=== PATIENT | male | born 1995 | race American Indian/Alaskan Native ===

== ENCOUNTER 2018-11-05 11:57 | Emergency (ER) | payer SELFPAY ==
[2018-11-05 12:06] VITALS: BP 115/55
--- NOTE | 2018-11-05 13:39 | Emergency Department Report ---
ED Extremity Problem HPI - General Chief complaint: Extremity Injury, Lower Stated complaint: LEFT KNEE PAIN X1WK Time Seen by Provider: 11/05/18 13:16 Source: patient Mode of arrival: Ambulatory Limitations: No Limitations - History of Present Illness Initial comments: Patient is a 22-year-old Austrian male who is complaining of left knee pain for the last 3 weeks. Patient is having difficulty walking and standing is interfering with his job. Patient states he had meniscal surgery approximately 20 years ago at [facility] for he no longer has a [employer] cart and cannot see the same orthopedic doctor. Patient states he has not had any slips and falls patient states pain is a 7 out of 10 in severity. - Related Data Previous Rx's Medication Instructions Recorded Last Taken Type Ibuprofen [Motrin] 800 mg PO Q8HR PRN #20 tablet 11/05/18 Unknown Rx Allergies Allergy/AdvReac Type Severity Reaction Status Date / Time soy Allergy Swelling Verified 11/05/18 12:04 ED Review of Systems ROS: Stated complaint: LEFT KNEE PAIN X1WK Other details as noted in HPI Comment: All other systems reviewed and negative ED Past Medical Hx - Past Medical History Previous Medical History?: No - Surgical History Past Surgical History?: Yes Additional Surgical History: left knee surgery. neck surgery- after neck fx - Social History Smoking Status: Current Every Day Smoker Substance Use Type: None - Medications Home Medications: Home Medications Medication Instructions Recorded Confirmed Last Taken Type Ibuprofen [Motrin] 800 mg PO Q8HR PRN #20 tablet 11/05/18 Unknown Rx ED Physical Exam - General Limitations: No Limitations General appearance: alert, in no apparent distress - Head Head exam: Present: atraumatic, normocephalic - Eye Eye exam: Present: normal appearance - ENT ENT exam: Present: mucous membranes moist - Neck Neck exam: Present: normal inspection - Respiratory Respiratory exam: Present: normal lung sounds bilaterally. Absent: respiratory distress - Cardiovascular Cardiovascular Exam: Present: regular rate, normal rhythm. Absent: systolic murmur, diastolic murmur, rubs, gallop - GI/Abdominal GI/Abdominal exam: Present: soft, normal bowel sounds - Rectal Rectal exam: Present: deferred - Extremities Exam Extremities exam: Present: normal inspection - Expanded Lower Extremity Exam Left Knee exam: Present: normal inspection, full ROM, tenderness, swelling (moderate effusion), effusion. Absent: laceration, ecchymosis, deformity, crepidus, erythema - Back Exam Back exam: Present: normal inspection - Neurological Exam Neurological exam: Present: alert, oriented X3 - Psychiatric Psychiatric exam: Present: normal affect, normal mood - Skin Skin exam: Present: warm, dry, intact, normal color. Absent: rash ED Course Vital Signs 11/05/18 12:04 Temperature 99.2 F Pulse Rate 53 L Respiratory 18 Rate Blood Pressure 115/55 O2 Sat by Pulse 98 Oximetry ED Medical Decision Making - Medical Decision Making Patient given information about rice therapy will be discharged home. Critical care attestation.: If time is entered above; I have spent that time in minutes in the direct care of this critically ill patient, excluding procedure time. ED Disposition Clinical Impression: Knee effusion, left Disposition: DC-01 TO HOME OR SELFCARE Is pt being admited?: No Does the pt Need Aspirin: No Condition: Stable Instructions: Knee Effusion (ED) Referrals: RORY MAYES MD [Staff Physician] - 3-5 Days Time of Disposition: 13:39
== END 2018-11-05 14:26 | disposition home or self-care (01) ==
LOC: ED 11:57
DX: M25.462 Effusion, left knee (principal); F17.200 Nicotine dependence, unspecified, uncomplicated
CPT/HCPCS: 99282

== ENCOUNTER 2019-04-24 22:22 | Emergency (ER) | payer SELFPAY ==
--- NOTE | 2019-04-24 22:30 | Event Note ---
ED Screening Note ED Screening Note: index finger pain This initial assessment/diagnostic orders/clinical plan/treatment(s) is/are subject to change based on patients health status, clinical progression and re- assessment by fellow clinical providers in the ED. Further treatment and workup at subsequent clinical providers discretion. Patient/guardian urged not to elope from the ED as their condition may be serious if not clinically assessed and managed. Initial orders include:
--- NOTE | 2019-04-24 23:31 | XRay Report ---
LEFT 4TH FINGER3 views HISTORY: Left index finger blunt trauma 10 days ago, and extending her pain COMPARISON: None. TECHNIQUE: 2 views of the left index finger and a PA view of the hand were obtained. FINDINGS: Bones: Small ossified fragment is seen projecting over the dorsal soft tissues of the index finger on ly on the lateral view, with possible donor site at the dorsal margin of the proximal phalanx base. S equela of an old thumb ulnar collateral ligament avulsion fracture is noted. Joint spaces: Maintained. Soft tissues: Mild index finger soft tissue swelling. Additional findings: None. IMPRESSION: 1. Possible index finger avulsion fracture fragment is seen only on the lateral view, with potential donor site at the dorsal margin of the proximal phalanx base. Correlation with examination for focal tenderness at this location is recommended. If clinically warranted, MRI of the head without contrast could be performed to evaluate for ligamentous/tendon injury. 2. Mild soft tissue swelling along the index finger. Signer Name: Mane Altman MD Signed: 04/24/2019 11:27 PM Workstation Name: [id number]
--- NOTE | 2019-04-25 00:37 | Emergency Department Report ---
ED Upper Extremity Inj HPI - General Chief Complaint: Extremity Injury, Upper Stated Complaint: LEFT INDEX FINGER INJURY Time Seen by Provider: 04/24/19 22:29 Source: patient Mode of arrival: Ambulatory Limitations: No Limitations - History of Present Illness Initial Comments: This is a 23-year-old -Chinese male who presents to emergency room with swelling and pain to left second finger. Patient's states his finger got stuck between 2 metal pipes while helping a friend carry them 2 weeks ago. He reports decreased ROM with increasing pain during movement. There is swelling and pain to proximal finger. MD Complaint: Injury to:: left, finger Onset/Timin -: days(s) Other Extremity Injury: Fingers: Right (second proximal finger) Other Injuries: none Handedness: right Place: outdoors Severity scale (0 -10): 5 Improves With: none Worsens With: movement of extremity Context: crush Associated Symptoms: denies other symptoms - Related Data Previous Rx's Medication Instructions Recorded Last Taken Type Ibuprofen [Motrin 800 MG tab] 800 mg PO Q8HR PRN #20 tablet 04/25/19 Unknown Rx Allergies Allergy/AdvReac Type Severity Reaction Status Date / Time soy Allergy Swelling Verified 11/05/18 12:04 ED Review of Systems ROS: Stated complaint: LEFT INDEX FINGER INJURY Other details as noted in HPI Constitutional: denies: chills, fever Respiratory: denies: cough, shortness of breath, wheezing Cardiovascular: denies: chest pain, palpitations Gastrointestinal: denies: abdominal pain, nausea, diarrhea Musculoskeletal: joint swelling (right PIP), arthralgia (right second proximal finger pain and swelling). denies: back pain Skin: denies: rash, lesions Neurological: denies: headache, weakness, paresthesias Psychiatric: denies: anxiety, depression ED Past Medical Hx - Past Medical History Previous Medical History?: No - Surgical History Past Surgical History?: Yes Additional Surgical History: left knee surgery. neck surgery- after neck fx - Social History Smoking Status: Never Smoker Substance Use Type: Marijuana - Medications Home Medications: Home Medications Medication Instructions Recorded Confirmed Last Taken Type Ibuprofen [Motrin 800 MG tab] 800 mg PO Q8HR PRN #20 tablet 04/25/19 Unknown Rx ED Physical Exam - General Limitations: No Limitations General appearance: alert, in no apparent distress - Respiratory Respiratory exam: Present: normal lung sounds bilaterally. Absent: respiratory distress - Cardiovascular Cardiovascular Exam: Present: regular rate, normal rhythm. Absent: systolic murmur, diastolic murmur, rubs, gallop - GI/Abdominal GI/Abdominal exam: Present: soft, normal bowel sounds - Expanded Upper Extremity Exam Right Shoulder Exam: Present: normal inspection, full ROM Upper Arm exam: Present: normal inspection, full ROM Elbow exam: Present: normal inspection, full ROM Forearm Wrist exam: Present: normal inspection, full ROM Hand Wrist exam: Present: tenderness (tenderness and swelling over second PIP), swelling. Absent: full ROM (Limited range of motion secondary pain), abrasion, laceration, ecchymosis, deformity, dislocation, erythema, amputation, nail avulsion, subungual hematoma Neuro motor exam: Present: wrist extension intact, thumb opposition intact, thumb IP flexion intact, thumb adduction intact, fingers 2-5 abduction intact Neurosensory exam: Present: radial nerve intact, ulnar nerve intact, median nerve intact Vascular: Present: normal capillary refill, radial pulse - Neurological Exam Neurological exam: Present: alert, oriented X3 - Psychiatric Psychiatric exam: Present: normal affect, normal mood - Skin Skin exam: Present: warm, dry, intact, normal color. Absent: rash ED Course Vital Signs 04/24/19 22:34 Temperature 97.3 F L Pulse Rate 88 Respiratory 18 Rate Blood Pressure 108/61 O2 Sat by Pulse 99 Oximetry ED Medical Decision Making - Radiology Data Radiology results: report reviewed LEFT 4TH FINGER3 views HISTORY: Left index finger blunt trauma 10 days ago, and extending her pain COMPARISON: None. TECHNIQUE: 2 views of the left index finger and a PA view of the hand were obtained. FINDINGS: Bones: Small ossified fragment is seen projecting over the dorsal soft tissues of the index finger only on the lateral view, with possible donor site at the dorsal margin of the proximal phalanx base. Sequela of an old thumb ulnar collateral ligament avulsion fracture is noted. Joint spaces: Maintained. Soft tissues: Mild index finger soft tissue swelling. Additional findings: None. IMPRESSION: 1. Possible index finger avulsion fracture fragment is seen only on the lateral view, with potential donor site at the dorsal margin of the proximal phalanx base. Correlation with examination for focal tenderness at this location is recommended. If clinically warranted, MRI of the head without contrast could be performed to evaluate for ligamentous/tendon injury. 2. Mild soft tissue swelling along the index finger. - Medical Decision Making Patient was examined by me. Vitals are normal and patient is in no acute distress. Obtained a x-ray of left second finger. X-rays dictated by radiologist. Possible index finger avulsion fracture fragment is seen only on the lateral view, with potential donor site at the dorsal margin of the proximal phalanx base. A splint to finger. Referral to orthopedic surgeon for continued care. Start ibuprofen for pain. Plan discussed with patient to discharge home and treat outpatient. He agrees with ER plan. Patient discharged home in stable condition. Follow up with PCP in 2-3 days. Critical care attestation.: If time is entered above; I have spent that time in minutes in the direct care of this critically ill patient, excluding procedure time. ED Disposition Clinical Impression: Finger fracture, left Qualifiers: Encounter type: initial encounter Finger: index finger Fracture type: closed Phalanx: proximal Fracture alignment: nondisplaced Qualified Code(s): S62.641A - Nondisplaced fracture of proximal phalanx of left index finger, initial encounter for closed fracture Finger pain Qualifiers: Laterality: left Qualified Code(s): M79.645 - Pain in left finger(s) Injury, finger Qualifiers: Encounter type: initial encounter Laterality: left Qualified Code(s): S69.92XA - Unspecified injury of left wrist, hand and finger(s), initial encounter Disposition: TO HOME OR SELFCARE Is pt being admited?: No Does the pt Need Aspirin: No Condition: Stable Instructions: Finger Fracture (ED) Additional Instructions: Follow-up with orthopedic surgeon from the referral list below. Take pain medication every 8 hours as needed for pain. [place] emergency room with worsening symptoms. Prescriptions: Ibuprofen [Motrin 800 MG tab] 800 mg PO Q8HR PRN #20 tablet PRN Reason: Pain Referrals: DESIREE TAVERAPRATIBHA MD [Primary Care Provider] - 3-5 Days [facility] [Outside] - 3-5 Days RORY MAYES MD [Staff Physician] - 3-5 Days [facility] [Provider Group] - 3-5 Days Forms: Work/School Release Form(ED), Accompanied Note Time of Disposition: 00:44
[2019-04-25 00:58] VITALS: BP 121/65
== END 2019-04-25 00:50 | disposition home or self-care (01) ==
LOC: ED 22:22
DX: S62.641A Nondisplaced fracture of proximal phalanx of left index finger, initial encounter for closed fracture (principal); F12.10 Cannabis abuse, uncomplicated; Z91.018 Allergy to other foods; W31.89XA Contact with other specified machinery, initial encounter; Y93.89 Activity, other specified; Y92.89 Other specified places as the place of occurrence of the external cause; Y99.8 Other external cause status

== ENCOUNTER 2019-05-02 20:53 | Emergency (ER) | payer SELFPAY ==
[2019-05-02 21:22] VITALS: BP 120/62
--- NOTE | 2019-05-02 21:51 | XRay Report ---
RIGHT ANKLE 3 VIEWS INDICATION / CLINICAL INFORMATION: Right ankle trauma skateboarding today with persistent pain. COMPARISON: None available. FINDINGS: Mild soft tissue swelling. There is a small bone density dorsal to the distal talus of unknown clinic al significance. This may represent an accessory ossicle. No other significant skeletal abnormality. Signer Name: Jigar Elaine MD FACR Signed: 05/02/2019 9:47 PM Workstation Name: [email or web address] [id number]
--- NOTE | 2019-05-02 22:39 | Emergency Department Report ---
ED Lower Extremity HPI - General Chief Complaint: Extremity Injury, Lower Stated Complaint: RIGHT ANKLE INJURY Time Seen by Provider: 05/02/19 21:30 Source: patient Mode of arrival: Ambulatory Limitations: No Limitations - History of Present Illness MD Complaint: ankle injury -: hour(s) Injury: Ankle: Right, Foot: Right Type of Injury: inversion Place: home (post accident falling down stairs) Severity: moderate Context: fall Associated Symptoms: swelling, able to partially bear weight (reports not able to bear a lot of weight, but is able to tiptoe a little bit) - Related Data Previous Rx's Medication Instructions Recorded Last Taken Type Ibuprofen [Motrin 800 MG tab] 800 mg PO Q8HR PRN #20 tablet 04/25/19 Unknown Rx Allergies Allergy/AdvReac Type Severity Reaction Status Date / Time soy Allergy Swelling Verified 11/05/18 12:04 ED Review of Systems ROS: Stated complaint: RIGHT ANKLE INJURY Other details as noted in HPI Comment: All other systems reviewed and negative ED Past Medical Hx - Past Medical History Previous Medical History?: No - Surgical History Past Surgical History?: Yes Additional Surgical History: left knee surgery. neck surgery- after neck fx - Social History Smoking Status: Never Smoker Substance Use Type: Marijuana - Medications Home Medications: Home Medications Medication Instructions Recorded Confirmed Last Taken Type Ibuprofen [Motrin 800 MG tab] 800 mg PO Q8HR PRN #20 tablet 04/25/19 Unknown Rx ED Physical Exam - General Limitations: No Limitations General appearance: alert, in no apparent distress - Head Head exam: Present: atraumatic, normocephalic - Eye Eye exam: Present: normal appearance - ENT ENT exam: Present: mucous membranes moist - Neck Neck exam: Present: normal inspection - Respiratory Respiratory exam: Present: normal lung sounds bilaterally. Absent: respiratory distress - Cardiovascular Cardiovascular Exam: Present: regular rate, normal rhythm. Absent: systolic murmur, diastolic murmur, rubs, gallop - GI/Abdominal GI/Abdominal exam: Present: soft, normal bowel sounds - Rectal Rectal exam: Present: deferred - Extremities Exam Extremities exam: Present: normal inspection, tenderness, normal capillary refill, joint swelling (my swelling to the right lateral malleolar region tenderness just above the lateral malleolus into the area of the right anterior talo fibular ligament. No tenderness to the proximal fibula. Joint is stable. Pulses 2+. Negative drawer test for the ankle) - Back Exam Back exam: Present: normal inspection - Neurological Exam Neurological exam: Present: alert, oriented X3 - Psychiatric Psychiatric exam: Present: normal affect, normal mood - Skin Skin exam: Present: warm, dry, intact, normal color. Absent: rash ED Course Vital Signs 05/02/19 21:18 Temperature 98 F Pulse Rate 54 L Respiratory 16 Rate Blood Pressure 120/62 O2 Sat by Pulse 100 Oximetry ED Lower Extremity MDM - Radiology Data Radiology results: report reviewed (no fracture noted) - Medical Decision Making 23-year-old -Turkmen male with a misstep on stairs resulting in an inversion injury, sprain to the ankle. X-ray does not show any fractures. Treated accordingly with sterile gel brace and crutches and advised Mylanta in flammatory disease and Rice therapy. Advised follow-up with orthopedic for definitive management and further evaluation of this ankle Critical care attestation.: If time is entered above; I have spent that time in minutes in the direct care of this critically ill patient, excluding procedure time. ED Disposition Clinical Impression: Ankle sprain Disposition: DC-01 TO HOME OR SELFCARE Is pt being admited?: No Does the pt Need Aspirin: No Condition: Stable Instructions: Ankle Sprain (ED), Ankle Stirrup Splint (ED), Ankle Exercises (GEN), RICE Therapy (ED), Crutch Instructions (ED) Referrals: PRATIBHA MOGNE MD [Primary Care Provider] - 3-5 Days
== END 2019-05-02 23:40 | disposition home or self-care (01) ==
LOC: ED 20:53
DX: S93.401A Sprain of unspecified ligament of right ankle, initial encounter (principal); F12.10 Cannabis abuse, uncomplicated; Z79.899 Other long term (current) drug therapy; Z98.890 Other specified postprocedural states; Z91.018 Allergy to other foods; W10.8XXA Fall (on) (from) other stairs and steps, initial encounter; Y93.89 Activity, other specified; Y92.89 Other specified places as the place of occurrence of the external cause; Y99.8 Other external cause status

== ENCOUNTER 2019-12-17 12:52 | Emergency (ER) | payer SELFPAY ==
[2019-12-17 14:24] VITALS: BP 117/78
--- NOTE | 2019-12-17 17:49 | Emergency Department Report ---
<DEVANTE COPPOLA - Last Filed: 12/17/19 18:51> ED Lower Extremity HPI - General Chief Complaint: Extremity Injury, Lower Stated Complaint: FOOT PAIN Time Seen by Provider: 12/17/19 17:41 - Related Data Previous Rx's Medication Instructions Recorded Last Taken Type Ibuprofen [Motrin 800 MG tab] 800 mg PO Q8HR PRN #20 tablet 04/25/19 Unknown Rx Ketorolac [Toradol] 10 mg PO Q6H PRN #14 tablet 12/17/19 Unknown Rx Allergies Allergy/AdvReac Type Severity Reaction Status Date / Time soy Allergy Swelling Verified 11/05/18 12:04 ED Past Medical Hx - Medications Home Medications: Home Medications Medication Instructions Recorded Confirmed Last Taken Type Ibuprofen [Motrin 800 MG tab] 800 mg PO Q8HR PRN #20 tablet 04/25/19 Unknown Rx Ketorolac [Toradol] 10 mg PO Q6H PRN #14 tablet 12/17/19 Unknown Rx ED Lower Extremity MDM - Radiology Data Radiology results: report reviewed Patient Name: CATHLEEN FELIPE Gender: Male Date of : 1995 Referring Provider: SETH BERUMEN Organization: [facility] Accession Number: [id number] Requested Date: December 17, 2019 17:41 Report Status: Final Requested Procedure: 1 Procedure Description: XR toe(s) 2+V RT Modality: XR Findings Reporting MD: Jigar Elaine Dictation Time: December 17, 2019 17:26 Regulatory Specialist: Not available Bilingual Interpreter Date: RIGHT GREAT TOE 3 VIEWS INDICATION / CLINICAL INFORMATION: HALLUX PAIN CRUSH INJURY. COMPARISON: None available. FINDINGS: There is a bone density adjacent to the lateral aspect of the head of the great toe that could be related to the lateral sesamoid. Moderate degenerative changes seen in the first metatarsophalangeal joint. No other significant skeletal abnormality. Signer Name: Jigar Elaine MD FACR Signed: 12/17/2019 5:26 PM Workstation Name: [id number] ED Disposition Clinical Impression: Contusion, toe Disposition: DC-01 TO HOME OR SELFCARE Condition: Stable Instructions: Contusion in Adults (ED), RICE Therapy (ED), Ice Pack Application (ED) Prescriptions: Ketorolac [Toradol] 10 mg PO Q6H PRN #14 tablet PRN Reason: Pain Referrals: PRIMARY CARE, [Primary Care Provider] - 3-5 Days TOMMY LAWS [[employer]] - 3-5 Days ERICKA FELTON DPM [Staff Physician] - 3-5 Days NANCY BURROWS MD [Staff Physician] - 3-5 Days DRE ROQUE DPM [Referring] - 3-5 Days WALLY HATCH DPM [Referring] - 3-5 Days <SETH BERUMEN - Last Filed: 12/17/19 19:04> ED Lower Extremity HPI - General Source: patient Mode of arrival: Ambulatory Limitations: No Limitations - History of Present Illness MD Complaint: foot injury -: Gradual Injury: Toes: Right Type of Injury: blunt Place: home Severity: mild, moderate Improves With: nothing Worsens With: weight bearing, movement, palpation Context: other (Was moving a heavy piece of [place] 3 days ago and began to lose control and effort for her to refrain from striking the ground he placed his foot there to rest the [place] on top of his toe causing a crush-like exacerbation. Reports pain to be dull and throbbing worse with range of motion and consistent since the onset) Associated Symptoms: able to partially bear weight ED Review of Systems ROS: Stated complaint: FOOT PAIN Other details as noted in HPI Comment: All other systems reviewed and negative ED Past Medical Hx - Past Medical History Previous Medical History?: No - Surgical History Additional Surgical History: left knee surgery. neck surgery- after neck fx - Social History Smoking Status: Never Smoker Substance Use Type: None ED Physical Exam - General Limitations: No Limitations General appearance: alert, in no apparent distress - Head Head exam: Present: atraumatic, normocephalic - Eye Eye exam: Present: normal appearance - ENT ENT exam: Present: mucous membranes moist - Neck Neck exam: Present: normal inspection - Respiratory Respiratory exam: Present: normal lung sounds bilaterally. Absent: respiratory distress - Cardiovascular Cardiovascular Exam: Present: regular rate, normal rhythm. Absent: systolic murmur, diastolic murmur, rubs, gallop - GI/Abdominal GI/Abdominal exam: Present: soft, normal bowel sounds - Rectal Rectal exam: Present: deferred - Extremities Exam Extremities exam: Present: normal inspection - Back Exam Back exam: Present: normal inspection - Neurological Exam Neurological exam: Present: alert, oriented X3, CN II-XII intact, normal gait - Psychiatric Psychiatric exam: Present: normal affect, normal mood - Skin Skin exam: Present: warm, dry, intact, normal color. Absent: rash ED Course Vital Signs 12/17/19 14:22 Temperature 98.2 F Pulse Rate 58 L Respiratory 16 Rate Blood Pressure 117/78 O2 Sat by Pulse 100 Oximetry ED Lower Extremity MDM - Medical Decision Making 24-year-old male status post crush injury by piece of [place] to the toe. He is awaiting his x-ray results speak case will be signed out to CARINA Dominguez for definitive disposition. This most likely is a crush injury mILD therapy for correction Critical care attestation.: If time is entered above; I have spent that time in minutes in the direct care of this critically ill patient, excluding procedure time. ED Disposition Is pt being admited?: No Does the pt Need Aspirin: No
--- NOTE | 2019-12-17 18:30 | XRay Report ---
RIGHT GREAT TOE 3 VIEWS INDICATION / CLINICAL INFORMATION: HALLUX PAIN CRUSH INJURY. COMPARISON: None available. FINDINGS: There is a bone density adjacent to the lateral aspect of the head of the great toe that could be rel ated to the lateral sesamoid. Moderate degenerative changes seen in the first metatarsophalangeal ryan nt. No other significant skeletal abnormality. Signer Name: Jigar VALERA Signed: 12/17/2019 6:26 PM Workstation Name: [id number]
== END 2019-12-17 19:09 | disposition home or self-care (01) ==
LOC: ED 12:52
DX: S90.121A Contusion of right lesser toe(s) without damage to nail, initial encounter (principal); M19.071 Primary osteoarthritis, right ankle and foot; Z91.018 Allergy to other foods; Z79.899 Other long term (current) drug therapy; X58.XXXA Exposure to other specified factors, initial encounter; Y93.89 Activity, other specified; Y92.89 Other specified places as the place of occurrence of the external cause; Y99.8 Other external cause status
CPT/HCPCS: 99283

== ENCOUNTER 2021-06-11 22:57 | Emergency (ER) | payer OTHER ==
[2021-06-12 00:20] VITALS: BP 128/97
--- NOTE | 2021-06-12 00:22 | Event Note ---
ED Screening Note Date of service: 06/12/21 Time: 00:21 ED Screening Note: 25-year-old [id number] male patient presents to the emergency department with complaints of traumatic left shoulder pain starting today after falling downstairs. General: Awake, appropriately interactive, no acute distress. Neck: Supple. Full range of motion intact. Cardiovascular: Normal peripheral perfusion. Pulmonary: No respiratory distress. Patient is speaking normally without use of accessory muscles. Skin: No apparent rashes or lesions. Neurological: No facial asymmetry. Speech is clear. Follows commands. Patient is alert and oriented. Musculoskeletal: Diffuse tenderness throughout the left shoulder. Reluctant to move left shoulder due to pain. Distal neurovascular and motor/sensory function intact. Psych: Cooperative. Appropriate mood and affect. I have greeted and performed a focused rapid initial assessment of this patient. A comprehensive ED assessment and evaluation of the patient, analysis of all test results, and completion of the medical decision-making process will be con ducted by additional ED providers. This initial assessment/diagnostic orders/clinical plan/treatment(s) is/are subject to change based on patients health status, clinical progression and re-assessment. Further treatment and workup at subsequent clinical provider's discretion. Patient/guardian urged not to elope from the ED as their condition may be serious if not clinically assessed and managed.
--- NOTE | 2021-06-12 01:11 | XRay Report ---
LEFT SHOULDER 4 VIEWS INDICATION: fell down stairs. COMPARISON: No relevant prior imaging study available. FINDINGS: Distal acromion is slightly low-lying with respect to the distal clavicle. No glenohumeral dislocation. No acute fracture. No foreign bodies. IMPRESSION: 1. Somewhat low-lying distal acromion could be seen in the setting of AC separation, correlate clinic ally. Signer Name: Royce Santillan MD Signed: 06/12/2021 1:06 AM Workstation Name: [id number]
--- NOTE | 2021-06-12 01:36 | Emergency Department Report ---
ED General Adult HPI - General Chief complaint: Extremity Injury, Upper Stated complaint: left shoulder pain Time Seen by Provider: 06/12/21 00:21 Source: patient Mode of arrival: Ambulatory Limitations: No Limitations - History of Present Illness Initial comments: 25-year-old yrcha-lzov-ktzcnkde male patient presents to the emergency department with complaints of traumatic left shoulder pain starting today. Patient states he was walking downstairs when he accidentally fell down approximately 6-8 stairs and landed on his left shoulder onto a concrete surface. There was no resulting head injury or loss of consciousness. Patient is able to recall events surrounding the injury in entirety. No history of prior injuries to the left shoulder. Denies headache, neck pain, elbow pain, wrist pain, hand pain, paresthesias, numbness, weakness. Denies all other complaints at this time. - Related Data Previous Rx's Medication Instructions Recorded Last Taken Type Ibuprofen [Motrin 800 MG tab] 800 mg PO Q8HR PRN #20 tablet 04/25/19 Unknown Rx Ketorolac [Toradol] 10 mg PO Q6H PRN #14 tablet 12/17/19 Unknown Rx HYDROcodone/APAP 5-325 [[place] 1 each PO Q4HR PRN #10 tablet 06/12/21 Unknown Rx 5/325] Naproxen 500 mg PO BID #20 tablet 06/12/21 Unknown Rx Allergies Allergy/AdvReac Type Severity Reaction Status Date / Time soy Allergy Swelling Verified 11/05/18 12:04 ED Review of Systems ROS: Stated complaint: RT SHOULDER PAIN Other details as noted in HPI Other: CARDIOVASCULAR: Negative for chest pain. PULMONARY: Negative for dyspnea. GASTROINTESTINAL: Negative for abdominal pain. MUSCULOSKELETAL: Positive for left shoulder pain. NEUROLOGICAL: Negative for headache. INTEGUMENTARY: Negative for ecchymosis. ED Past Medical Hx - Surgical History Additional Surgical History: left knee surgery. neck surgery- after neck fx - Social History Smoking Status: Never Smoker Substance Use Type: None - Medications Home Medications: Home Medications Medication Instructions Recorded Confirmed Last Taken Type Ibuprofen [Motrin 800 MG tab] 800 mg PO Q8HR PRN #20 tablet 04/25/19 Unknown Rx Ketorolac [Toradol] 10 mg PO Q6H PRN #14 tablet 12/17/19 Unknown Rx HYDROcodone/APAP 5-325 [[place] 1 each PO Q4HR PRN #10 tablet 06/12/21 Unknown Rx 5/325] Naproxen 500 mg PO BID #20 tablet 06/12/21 Unknown Rx ED Physical Exam - General Limitations: No Limitations - Other Other exam information: General: Awake, appropriately interactive, no acute distress. Neck: Supple. Full range of motion intact. Cardiovascular: Normal peripheral perfusion. Pulmonary: No respiratory distress. Patient is speaking normally without use of accessory muscles. Skin: No apparent rashes or lesions. Neurological: No facial asymmetry. Speech is clear. Follows commands. Patient is alert and oriented. Musculoskeletal: Tenderness to palpation throughout the left clavicle and left shoulder with limited range of motion in all directions secondary to pain. Left upper extremity is held in flexion/internal rotation. No obvious deformity or dislocation. No obvious tenting of the skin. Distal neurovascular and motor/sensory function intact. Psych: Cooperative. Appropriate mood and affect. ED Course Vital Signs 06/12/21 00:18 Temperature 98.3 F Pulse Rate 60 Respiratory 18 Rate Blood Pressure 128/97 O2 Sat by Pulse 99 Oximetry ED Medical Decision Making - Radiology Data [facility] [address] [place] [address] XRay Report Signed Patient: CATHLEEN FELIPE MR#: [id number] : 1995 Acct:[id number] Age/Sex: 25 / M ADM Date: 06/11/21 Loc: ED Attending Dr: Ordering Physician: CARINA ANDERSON Date of Service: 06/12/21 Procedure(s): XR shoulder 2+V LT Accession Number(s): [id number] cc: CARINA ANDERSON Fluoro Time In Minutes: LEFT SHOULDER 4 VIEWS INDICATION: fell down stairs. COMPARISON: No relevant prior imaging study available. FINDINGS: Distal acromion is slightly low-lying with respect to the distal clavicle. No glenohumeral dislocation. No acute fracture. No foreign bodies. IMPRESSION: 1. Somewhat low-lying distal acromion could be seen in the setting of AC separation, correlate clinically. Signer Name: Royce Santillan MD Signed: 06/12/2021 1:06 AM Workstation Name: [id number] Transcribed By: Dictated By: Royce Santillan MD Electronically Authenticated By: Royce Santillan MD Signed Date/Time: 06/12/21105 DD/ 5 TD/TT: - Medical Decision Making Differential diagnosis including but not limited to: sprain, strain, fracture, contusion, dislocation, rotator cuff injury, labrum injury, AC separation On reevaluation, patient remains stable. Repeat neurovascular exam remains intact. X-rays show low-lying distal acromion, suggestive of AC separation. Patient will be placed in a sling and discharged home with appropriate analgesics and referral to orthopedics for close outpatient follow-up. Patient expressed understanding and is agreeable to plan of care. RICE precautions discussed. Strict return precautions provided. Repeat exam is unremarkable and benign. History, exam, diagnostic testing, and current condition do not suggest worrisome pathology to warrant further testing, continued ED treatment, admission, or surgical evaluation at this point. Given the low probability of a significant medical illness, it would be more likely to result in harm than benefit to perform further testing at this stage. Discussed findings, presumptive diagnosis, need for follow-up and specific signs/symptoms that should prompt immediate return to the emergency department. Instructions were explained in detail to the patient in addition to giving written discharge information. Patient expressed understanding and was given the opportunity to ask questions, all of which were satisfactorily answered prior to discharge home. Case discussed with Dr. Riddle, attending emergency physician, who agrees with diagnostic work-up/plan of care. Critical care attestation.: If time is entered above; I have spent that time in minutes in the direct care of this critically ill patient, excluding procedure time. ED Disposition Clinical Impression: Separation of AC joint Qualifiers: Encounter type: initial encounter Laterality: left Qualified Code(s): S43.102A - Unspecified dislocation of left acromioclavicular joint, initial encounter Disposition: HOME / SELF CARE / HOMELESS Is pt being admited?: No Does the pt Need Aspirin: No Condition: Stable Instructions: Acromioclavicular Separation Additional Instructions: Take Naprosyn twice daily with food as needed for pain. If this medication is not sufficient in controlling your pain, take [place] with food as directed. Do not drive while taking this medication. Do not operate machinery while taking this medication. Wear sling as directed. Follow-up with Dr. Estrada, orthopedics, this week. Call Monday to schedule an appointment. See referral information below. Bring a copy of today's results with you to your follow-up appointment. Return to the emergency department immediately for new or worsening symptoms. Prescriptions: Naproxen 500 mg PO BID #20 tablet HYDROcodone/APAP 5-325 [[place] 5/325] 1 each PO Q4HR PRN #10 tablet PRN Reason: Pain Referrals: RORY ESTRADA MD [Staff Physician] - 3-5 Days Time of Disposition: 01:51
[2021-06-12] MEDS ORDERED: ONDANSETRON 4 MG ODT TAB PO ONE (01:47)
[2021-06-12] MEDS ORDERED: oxyCODONE /ACETAMINOPHEN 5-325MG TAB PO ONE (01:47)
[2021-06-12] MEDS ORDERED: oxyCODONE /ACETAMINOPHEN 5-325MG TAB ONE (04:39)
[2021-06-12] MEDS ORDERED: ONDANSETRON 4 MG ODT TAB ONE (04:39)
== END 2021-06-13 04:45 | disposition home or self-care (01) ==
LOC: ED 22:57
DX: S43.102A Unspecified dislocation of left acromioclavicular joint, initial encounter (principal); Z79.899 Other long term (current) drug therapy; Z91.018 Allergy to other foods; W10.9XXA Fall (on) (from) unspecified stairs and steps, initial encounter; Y93.89 Activity, other specified; Y92.89 Other specified places as the place of occurrence of the external cause; Y99.8 Other external cause status
CPT/HCPCS: Q0162